=== PATIENT | female | born 1975 | race Caucasian/White ===

== ENCOUNTER 2017-07-20 19:58 | Emergency (ER) | payer BC ==
[2017-07-20 20:33] LABS: URINE HCG POC HCG NEGATIVE (Negative)
[2017-07-20] MEDS: KETOROLAC 15 MG/ML VIAL. IV ×2 (21:29)
[2017-07-20] MEDS: diphenhydrAMINE 50 MG/ML VIAL IVP ×2 (21:29)
[2017-07-20] MEDS: IV NORMAL SALINE 1000ML BAG 1,000 ML IV ×2 (21:29)
[2017-07-20] MEDS: PROMETHAZINE 12.5 MG in IV DEXTROSE 5% 50 ML IV (21:29)
== END 2017-07-20 22:19 | disposition home or self-care (01) ==
LOC: ER 19:58
DX: G43.909 Migraine, unspecified, not intractable, without status migrainosus (principal); J34.89 Other specified disorders of nose and nasal sinuses; Z88.2 Allergy status to sulfonamides; Z88.1 Allergy status to other antibiotic agents; Z98.51 Tubal ligation status
CPT/HCPCS: 81025; 96365; 96375; 99284-25; J1200; J1885; J2550; J7030

== ENCOUNTER 2017-11-26 10:07 | Emergency (ER) | payer BC | END 2017-11-26 11:43 | disposition home or self-care (01) | LOC: ER 10:07 | DX: S62.307A Unspecified fracture of fifth metacarpal bone, left hand, initial encounter for closed fracture (principal); S62.305A Unspecified fracture of fourth metacarpal bone, left hand, initial encounter for closed fracture; G43.909 Migraine, unspecified, not intractable, without status migrainosus; M79.7 Fibromyalgia; Z98.51 Tubal ligation status; Z88.1 Allergy status to other antibiotic agents; Z88.2 Allergy status to sulfonamides; W22.8XXA Striking against or struck by other objects, initial encounter; Y93.89 Activity, other specified; Y99.8 Other external cause status; Y92.89 Other specified places as the place of occurrence of the external cause | CPT/HCPCS: 29125; 73130; 99284-25 ==

== ENCOUNTER 2018-02-10 18:54 | Emergency (ER) | payer BC ==
[~2018-02-10] VITALS: Ht 152.4 cm; Wt 62.1 kg
[~2018-02-10 18:54] MED LIST: HYDR-971 PO
[2018-02-10 19:52] LABS: BILIRUBIN,URINE NEGATIVE (NEG); CLARITY,URINE CLEAR; COLOR,URINE YELLOW; NITRITE,URINE NEGATIVE (NEG); PH,URINE 7.5; PROTEIN,URINE NEGATIVE (NEG-TRACE); UROBILINOGEN,URINE 0.2 mg/dL (0.2 mg/dL)
[2018-02-10] MEDS ORDERED: MORPHINE SULFATE 4 MG/ML VIAL. IV ONE (20:00)
[2018-02-10] MEDS ORDERED: ONDANSETRON PF 4 MG/2 ML VIAL. IV ONE (20:00)
[2018-02-10 20:01] LABS: BACTERIA,URINE 0 /HPF (0-FEW); SQUAMOUS EPITHELIAL CELL,UR FEW /LPF; WBC,URINE 0 /HPF (0-4)
--- NOTE | 2018-02-10 20:01 | PHYS DOC ---
Past Medical History Past Medical History: Fibromyalgia, Migraines Past Surgical History: , Tonsillectomy, Tubal ligation Additional Past Surgical Histo: X3 FOOT SX Alcohol Use: None Drug Use: None Adult General Chief Complaint Chief Complaint: GI PROBLEM HPI HPI Patient is a 42 year old female presents the ED complaining of nausea and vomiting 4 days ago. Patient states that she had some left lower abdominal pain for the last 4 days. Associated symptoms include diarrhea. States she went to the urgent care and was sent to the ED. Denies chest pain, shortness of breath, fever, recent travel, syncope, headache or dizziness Review of Systems Review of Systems Constitutional: Denies fever or chills [] Eyes: Denies change in visual acuity, redness, or eye pain [] HENT: Denies nasal congestion or sore throat [] Respiratory: Denies cough or shortness of breath [] Cardiovascular: No additional information not addressed in HPI [] GI: Complains of abdominal pain, nausea/vomiting and diarrhea. Denies bloody stools. : Denies dysuria or hematuria [] Musculoskeletal: Denies back pain or joint pain [] Integument: Denies rash or skin lesions [] Neurologic: Denies headache, focal weakness or sensory changes [] Endocrine: Denies polyuria or polydipsia [] All other systems were reviewed and found to be within normal limits, except as documented in this note. Current Medications Current Medications Current Medications Medications (Trade) Dose Ordered Sig/Baldo Start Time Stop Time Status Last Admin Dose Admin Info (CONTRAST GIVEN -- Rx MONITORING) 1 each PRN DAILY PRN 02/10/18 20:15 02/11/18 05:05 DC Iohexol (Omnipaque 300 Mg/ml) 75 ml 1X ONCE 02/10/18 20:15 02/10/18 20:16 DC 02/10/18 20:36 75 ML Morphine Sulfate (Morphine Sulfate) 4 mg 1X ONCE 02/10/18 20:00 02/10/18 20:01 DC 02/10/18 20:21 4 MG Ondansetron HCl (Zofran) 4 mg 1X ONCE 02/10/18 20:00 02/10/18 20:01 DC 02/10/18 20:20 4 MG Allergies Allergies Allergies Coded Allergies Type Severity Reaction Last Updated Verified Sulfa (Sulfonamide Antibiotics) Allergy Unknown 07/20/17 Yes amoxicillin Allergy Unknown 07/20/17 Yes Physical Exam Physical Exam Constitutional: Well developed, well nourished, no acute distress, non-toxic appearance. [] HENT: Normocephalic, atraumatic Neck: Normal range of motion, no tenderness, supple, no stridor. [] Cardiovascular:Heart rate regular rhythm, no murmur [] Lungs & Thorax: Bilateral breath sounds clear to auscultation [] Abdomen: Bowel sounds normal, soft, mild llq abdominal tenderness, no masses, no pulsatile masses. [] Skin: Warm, dry, no erythema, no rash. [] Back: No tenderness, no CVA tenderness. [] Extremities: No tenderness, no cyanosis, no clubbing, ROM intact, no edema. [] Neurologic: Alert and oriented X 3, normal motor function, normal sensory function, no focal deficits noted. [] Psychologic: Affect normal, judgement normal, mood normal. [] Current Patient Data Vital Signs Vital Signs Date Time Temp Pulse Resp B/P (MAP) Pulse Ox O2 Delivery O2 Flow Rate FiO2 02/10/18 20:21 16 100 Room Air 02/10/18 20:16 95 116/64 (81) 02/10/18 19:50 98.6 98.6 Lab Values Laboratory Tests Test 02/10/18 19:35 02/10/18 19:41 02/10/18 19:55 Urine Collection Type Unknown Urine Color Yellow Urine Clarity Clear Urine pH 7.5 Urine Specific [place] <=1.005 Urine Protein Negative mg/dL (NEG-TRACE) Urine Glucose (UA) Negative mg/dL (NEG) Urine Ketones (Stick) Negative mg/dL (NEG) Urine Blood Negative (NEG) Urine Nitrite Negative (NEG) Urine Bilirubin Negative (NEG) Urine Urobilinogen Dipstick 0.2 mg/dL (0.2 mg/dL) Urine Leukocyte Esterase Negative (NEG) Urine RBC 1-2 /HPF (0-2) Urine WBC 0 /HPF (0-4) Urine Squamous Epithelial Cells Few /LPF Urine Bacteria 0 /HPF (0-FEW) POC Urine HCG, Qualitative Hcg negative (Negative) White Blood Count 7.4 x10^3/uL (4.0-11.0) Red Blood Count 3.76 x10^6/uL (3.50-5.40) Hemoglobin 11.6 g/dL (12.0-15.5) L Hematocrit 34.7 % (36.0-47.0) L Mean Corpuscular Volume 92 fL (79-100) Mean Corpuscular Hemoglobin 31 pg (25-35) Mean Corpuscular Hemoglobin Concent 33 g/dL (31-37) Red Cell Distribution Width 14.3 % (11.5-14.5) Platelet Count 274 x10^3/uL (140-400) Neutrophils (%) (Auto) 61 % (31-73) Lymphocytes (%) (Auto) 30 % (24-48) Monocytes (%) (Auto) 7 % (0-9) Eosinophils (%) (Auto) 1 % (0-3) Basophils (%) (Auto) 1 % (0-3) Neutrophils # (Auto) 4.5 x10^3uL (1.8-7.7) Lymphocytes # (Auto) 2.2 x10^3/uL (1.0-4.8) Monocytes # (Auto) 0.5 x10^3/uL (0.0-1.1) Eosinophils # (Auto) 0.1 x10^3/uL (0.0-0.7) Basophils # (Auto) 0.1 x10^3/uL (0.0-0.2) Sodium Level 137 mmol/L (136-145) Potassium Level 3.7 mmol/L (3.5-5.1) Chloride Level 102 mmol/L (98-107) Carbon Dioxide Level 28 mmol/L (21-32) Anion Gap 7 (6-14) Blood Urea Nitrogen 6 mg/dL (7-20) L Creatinine 1.0 mg/dL (0.6-1.0) Estimated GFR (Cockcroft-Gault) 61.1 BUN/Creatinine Ratio 6 (6-20) Glucose Level 86 mg/dL (70-99) Calcium Level 9.0 mg/dL (8.5-10.1) Total Bilirubin 0.3 mg/dL (0.2-1.0) Aspartate Amino Transferase (AST) 25 U/L (15-37) Alanine Aminotransferase (ALT) 36 U/L (14-59) Alkaline Phosphatase 112 U/L (46-116) Total Protein 7.4 g/dL (6.4-8.2) Albumin 3.7 g/dL (3.4-5.0) Albumin/Globulin Ratio 1.0 (1.0-1.7) Lipase 175 U/L (73-393) Laboratory Tests 02/10/18 19:55 Laboratory Tests 02/10/18 19:55 EKG EKG [] Radiology/Procedures Radiology/Procedures PROCEDURE: PELVIS W/TV Pelvic ultrasound. Clinical Indication: Left pelvic pain, abnormal CT. Comparison: CT abdomen and pelvis with contrast, earlier same day. TECHNIQUE: Real-time ultrasound imaging of the pelvis using transabdominal and transvaginal window is performed. Findings: There are multiple nabothian cysts. The uterus measures 9.5 x 5.1 x 4 cm. The endometrial stripe is normal measuring 9 mm. There is normal blood flow in the ovaries. There is a functional cyst in the left ovary measuring 2.1 x 2.2 x 1.9 cm. There are internal echoes and the cyst may be hemorrhagic. There are small right ovarian follicles. No evidence of adnexal mass. No pelvic free fluid is seen. IMPRESSION: 1. Normal blood flow in the ovaries. 2. Multiple nabothian cysts. 3. No pelvic free fluid.[] PROCEDURE: CT ABD PELV W/ IV CONTRST ONLY PQRS Compliance statement: One or more of the following individualized dose reduction techniques were utilized for this examination: 1. Automated exposure control. 2. Adjustment of the mA and/or kV according to patient size. 3. Use of iterative reconstruction technique. Indication:LEFT LOWER QUADRANT PAIN WITH NAUSEA, VOMITING, DIARRHEA TECHNIQUE: CT abdomen and pelvis with IV contrast with multiplanar reformats. COMPARISON: None FINDINGS: Heart is normal in size. Clear lung bases. Liver, spleen, gallbladder, pancreas, adrenals and right kidney are within normal limits. 1.8 cm simple appearing cyst is seen in the left kidney. No free pelvic fluid or ascites. No pelvic or retroperitoneal adenopathy. No bowel obstruction. Normal appendix. There is diffuse wall thickening of the colon noted without pericolonic inflammatory changes. Anteverted uterus. Urinary bladder within normal limits. 2.9 x 2.2 cm low attenuating lesion is seen in the left ovary. No pneumoperitoneum. No suspicious bony lesion. IMPRESSION: 1. No nephrolithiasis or hydronephrosis. 2. No bowel obstruction. 3. Left ovarian lesion, indeterminate but most likely a simple cyst or dominant follicle. 4. Long segment wall thickening of the colon may be secondary to suboptimal distention although mild colitis not ruled out. Course & Med Decision Making Course & Med Decision Making Pertinent Labs and Imaging studies reviewed. (See chart for details) []Discussed labs and imaging findings with patient. Patient's pain improved. States she is feeling much better. On reexamination, abdomen is soft nontender nondistended. No peritoneal signs. Tolerating by mouth. Discussed follow-up with PCP outpatient this week. Provided contact information/education. Discussed reasons to return to the ED. Patient understands and agrees with plan. Attending physician attestation: I was working at the time of this patient's ER visit and was available for consultation, but did not personally interview, examine, or directly take part in the patient's care. DO Richie Bolivar Disclaimer Dragon Disclaimer This electronic medical record was generated, in whole or in part, using a voice recognition dictation system. Departure Departure Impression: Primary Impression: Colitis Additional Impression: Ovarian cyst Disposition: HOME, SELF-CARE Condition: IMPROVED Referrals: MISTY RAMIREZ MD (PCP) Patient Instructions: Colitis, Ovarian Cyst Problem Qualifiers LEXX MITTAL Feb 10, 2018 20:01 LENCHO RIVERA DO Feb 15, 2018 06:10
[2018-02-10 20:04] LABS: BASO # 0.1 x10^3/uL (0.0-0.2); BASO % 1 % (0-3); EOS # 0.1 x10^3/uL (0.0-0.7); EOS % 1 % (0-3); HEMATOCRIT 34.7 % (36.0-47.0); HEMOGLOBIN 11.6 g/dL (12.0-15.5); LYMPH # 2.2 x10^3/uL (1.0-4.8); LYMPH % 30 % (24-48); MEAN CORPUSCULAR HEMOGLOBIN 31 pg (25-35); MEAN CORPUSCULAR HGB CONC 33 g/dL (31-37); MEAN CORPUSCULAR VOLUME 92 fL (79-100); MONO # 0.5 x10^3/uL (0.0-1.1); MONO % 7 % (0-9); NEUT # 4.5 x10^3uL (1.8-7.7); NEUT % 61 % (31-73); PLATELET COUNT 274 x10^3/uL (140-400); RED BLOOD COUNT 3.76 x10^6/uL (3.50-5.40); RED CELL DISTRIBUTION WIDTH 14.3 % (11.5-14.5); WHITE BLOOD COUNT 7.4 x10^3/uL (4.0-11.0)
[2018-02-10] MEDS ORDERED: IOHEXOL 300 MG/ML 100ML VIAL. IV ONE (20:15)
[2018-02-10] MEDS ORDERED: CONTRAST GIVEN. MC PRN (20:15)
[2018-02-10 20:16] VITALS: BP 116/64
[2018-02-10 20:16] LABS: GFR 61.1; POTASSIUM 3.7 mmol/L (3.5-5.1)
[2018-02-10 20:22] LABS: ALBUMIN 3.7 g/dL (3.4-5.0); TOTAL BILIRUBIN 0.3 mg/dL (0.2-1.0); TOTAL PROTEIN 7.4 g/dL (6.4-8.2)
--- NOTE | 2018-02-11 00:36 | RAD ---
PQRS Compliance statement: One or more of the following individualized dose reduction techniques were utilized for this examination: 1. Automated exposure control. 2. Adjustment of the mA and/or kV according to patient size. 3. Use of iterative reconstruction technique. Indication:LEFT LOWER QUADRANT PAIN WITH NAUSEA, VOMITING, DIARRHEA TECHNIQUE: CT abdomen and pelvis with IV contrast with multiplanar reformats. COMPARISON: None FINDINGS: Heart is normal in size. Clear lung bases. Liver, spleen, gallbladder, pancreas, adrenals and right kidney are within normal limits. 1.8 cm simple appearing cyst is seen in the left kidney. No free pelvic fluid or ascites. No pelvic or retroperitoneal adenopathy. No bowel obstruction. Normal appendix. There is diffuse wall thickening of the colon noted without pericolonic inflammatory changes. Anteverted uterus. Urinary bladder within normal limits. 2.9 x 2.2 cm low attenuating lesion is seen in the left ovary. No pneumoperitoneum. No suspicious bony lesion. IMPRESSION: 1. No nephrolithiasis or hydronephrosis. 2. No bowel obstruction. 3. Left ovarian lesion, indeterminate but most likely a simple cyst or dominant follicle. 4. Long segment wall thickening of the colon may be secondary to suboptimal distention although mild colitis not ruled out. Electronically signed by: Vladislav Faye DO (02/10/2018 9:01 PM) [facility]
--- NOTE | 2018-02-11 02:17 | RAD ---
Pelvic ultrasound. Clinical Indication: Left pelvic pain, abnormal CT. Comparison: CT abdomen and pelvis with contrast, earlier same day. TECHNIQUE: Real-time ultrasound imaging of the pelvis using transabdominal and transvaginal window is performed. Findings: There are multiple nabothian cysts. The uterus measures 9.5 x 5.1 x 4 cm. The endometrial stripe is normal measuring 9 mm. There is normal blood flow in the ovaries. There is a functional cyst in the left ovary measuring 2.1 x 2.2 x 1.9 cm. There are internal echoes and the cyst may be hemorrhagic. There are small right ovarian follicles. No evidence of adnexal mass. No pelvic free fluid is seen. IMPRESSION: 1. Normal blood flow in the ovaries. 2. Multiple nabothian cysts. 3. No pelvic free fluid. Electronically signed by: Marvin Ash MD (02/11/2018 2:14 AM) [facility]
== END 2018-02-11 00:30 | disposition home or self-care (01) ==
LOC: ER 18:54
DX: N83.202 Unspecified ovarian cyst, left side (principal); K52.9 Noninfective gastroenteritis and colitis, unspecified; G43.909 Migraine, unspecified, not intractable, without status migrainosus; Z90.89 Acquired absence of other organs; Z98.890 Other specified postprocedural states; Z88.1 Allergy status to other antibiotic agents; Z88.2 Allergy status to sulfonamides
CPT/HCPCS: 36415; 74177; 76830; 76856; 80053; 81001; 81025; 83690; 85025; 96374; 96375; 99285; J2270; J2405; Q9967

== ENCOUNTER 2019-01-21 06:15 | Observation (INO) | payer BC ==
[2019-01-21] VITALS (11 sets, daily range): BP systolic 91–122; BP diastolic 53–82
[~2019-01-21] VITALS: Ht 152.4 cm; Wt 126.4 kg
[~2019-01-21 06:15] MED LIST changes: +BUDE10.2 IH; +BUPIVACAINE-EPI 0.25%-1:200000 MPF 30 ML VIAL. ONE; +BUPR100T11 PO; +BUPR100T8 PO; +CLINDAMYCIN 900MG PREMIX 50 ML IV PRN; +ESTROGENS, CONJ VAGINAL CREAM 30GM TUBE. ONE; +HYDR-3164 PO; -HYDR-971 PO; +INDIGOTINDISULFONATE SODIUM 40 MG/5 ML AMPUL. ONE; +SUMA100T4 PO; +TRAM50TA PO
[2019-01-21] MEDS ORDERED: IV RINGERS,LACTATED 1000ML 1,000 ML IV SCH (07:00)
[2019-01-21] MEDS ORDERED: SCOPOLAMINE 1.5MG PATCH. TD ONE (07:00)
[2019-01-21] MEDS ORDERED: ONDANSETRON PF 4 MG/2 ML VIAL. IV PRN ×2 (07:00→09:30)
[2019-01-21] MEDS ORDERED: PROCHLORPERAZINE 10 MG/2 ML VIAL. IV PRN (07:00)
[2019-01-21] MEDS ORDERED: PROPOFOL 20 ML IV ONE (07:00)
[2019-01-21] MEDS ORDERED: LIDOCAINE 1% PF 2 ML VIAL. ID PRN (07:00)
[2019-01-21] MEDS ORDERED: HYDROmorphone 2 MG/ML VIAL IV PRN (07:00)
[2019-01-21] MEDS ORDERED: ONDANSETRON PF 4 MG/2 ML VIAL. ONE (07:00)
[2019-01-21] MEDS ORDERED: fentaNYL PF VIAL 100 MCG/2 ML VIAL IV PRN (07:00)
[2019-01-21] MEDS ORDERED: fentaNYL PF VIAL 100 MCG/2 ML VIAL ONE ×3 (07:01→10:20)
[2019-01-21] MEDS ORDERED: DEXAMETHASONE SOD PHOS 4 MG/ML VIAL ONE (07:01)
[2019-01-21] MEDS ORDERED: ROCURONIUM 50 MG/5 ML VIAL. ONE (07:02)
[2019-01-21] MEDS ORDERED: SUMAtriptan SUCCINATE 25 MG TABLET PO PRN (08:00)
[2019-01-21] MEDS ORDERED: PHENYLEPHRINE in 0.9% NACL PF 1 MG/10 ML SYRINGE. IV ONE (08:22)
--- NOTE | 2019-01-21 09:28 | PDOC ---
BRIEF OPERATIVE NOTE Date: Jan 21, 2019 Pre-Op Diagnosis menorrhagia, enlarged uterus Post-Op Diagnosis same with endometriosis Procedure Performed LAVH/BSO Surgeon Dr. Eloisa Alvarez Wood Room Supervisor CHERYL Wood Anesthesiologist Dr. Barreto Anesthesia Type: General Blood Loss 20cc IV Fluid 600cc Urine Output 150cc clear via jalloh Specimens Obtained cervix, uterus, bilateral tubes and ovaries Findings endometriosis on anterior abdominal wall, uterus, left US ligament and on left tube; mildly enlarged RV uterus, normal bilateral ovaries; evidence of prior fallop ring tubal ligation normal appendix Complications none Operative Note [id number] ELOISA ALVAREZ MD Jan 21, 2019 09:28
[2019-01-21] MEDS ORDERED: LACTULOSE 20 GM/30 ML SOLUTION. PO PRN (09:30)
[2019-01-21] MEDS ORDERED: 0.9 % SODIUM CHLORIDE 10 ML DISP.SYRIN. IV PRN (09:30)
[2019-01-21] MEDS ORDERED: ZOLPIDEM 5 MG TABLET. PO PRN (09:30)
[2019-01-21] MEDS ORDERED: diphenhydrAMINE 50 MG/ML VIAL IV PRN (09:30)
[2019-01-21] MEDS ORDERED: MAGNESIUM HYDROXIDE 2,400 MG/30 ML ORAL.SUSP. PO PRN (09:30)
[2019-01-21] MEDS ORDERED: diphenhydrAMINE HCL 25 MG CAPSULE PO PRN (09:30)
[2019-01-21] MEDS ORDERED: SIMETHICONE 80 MG TAB.CHEW PO PRN (09:30)
[2019-01-21] MEDS ORDERED: MORPHINE SULFATE 2 MG/ML VIAL. IV PRN (09:30)
[2019-01-21] MEDS ORDERED: MAG HYDROX/ALUMINUM HYD/SIMETH 30 ML ORAL.SUSP PO PRN (09:30)
[2019-01-21] MEDS ORDERED: CALCIUM CARBONATE 500 MG TAB.CHEW PO PRN (09:30)
[2019-01-21] MEDS ORDERED: HYDROcodone/APAP 5/325MG 1 TAB TABLET PO PRN (09:30)
[2019-01-21] MEDS ORDERED: NALOXONE 0.4 MG/ML VIAL. IV PRN (09:30)
[2019-01-21] MEDS: fentaNYL PF VIAL 100 MCG/2 ML VIAL IV PRN ×4 (09:50→10:28)
[2019-01-21] MEDS: MORPHINE SULFATE 2 MG/ML VIAL. IV PRN ×2 (09:58→10:11)
[2019-01-21] MEDS ORDERED: ESTRADIOL WEEKLY 0.1 MG PATCH. TD SCH (10:00)
[2019-01-21] MEDS ORDERED: diphenhydrAMINE 50 MG/ML VIAL ONE (10:14)
[2019-01-21] MEDS: KETOROLAC 30 MG/ML VIAL. IV PRN ×2 (11:33→20:13)
--- NOTE | 2019-01-21 14:47 | OP ---
DATE OF SURGERY: 01/21/2019 PREOPERATIVE DIAGNOSES: Enlarged retroverted uterus with menorrhagia and pelvic pain. POSTOPERATIVE DIAGNOSES: Enlarged retroverted uterus with menorrhagia and pelvic pain with endometriosis. PROCEDURE: Laparoscopic-assisted vaginal hysterectomy, bilateral salpingo-oophorectomy. SURGEON: Iker Alvarez MD GAS LEAK INSPECTOR HELPER: CHERYL Zamudio ANESTHESIOLOGIST: Shan Barreto MD ANESTHESIA: General. ESTIMATED BLOOD LOSS: 20 mL. URINE OUTPUT: 150 mL, clear via Izquierdo catheter. IV FLUIDS: 600 mL of crystalloid. SPECIMEN: Cervix, uterus, bilateral tubes and ovaries. FINDINGS: Endometriosis on the anterior abdominal wall on the uterus posteriorly, the left uterosacral ligament and left tube and that was on the left anterior abdominal wall. This was pretty much left-sided. She had a mildly enlarged retroverted uterus, normal bilateral ovaries with evidence of prior tubal ligation with Falope rings. COMPLICATIONS: None. DESCRIPTION OF PROCEDURE: This patient was taken to the operating room where general anesthesia was placed. The patient was placed in a dorsal lithotomy position in [facility]. The patient's abdomen and vagina were prepped and draped in the normal sterile fashion and a Izquierdo catheter had been inserted under sterile technique. Upon my arrival, a timeout was performed. Once everyone agreed, a bivalve speculum was placed in the patient's vagina. A single-tooth tenaculum was used to grasp the anterior lip of the cervix. A 10 mL of 0.25% Marcaine with epinephrine was used to circumferentially inject around the cervix for both hemodissection and hemostatic purposes later. The Valtchev uterine manipulator was placed through the endocervical os, locked on the single-tooth tenaculum and the bivalve speculum was then removed. Top gloves were discarded and changed. Attention was then turned to the abdomen where a small supraumbilical skin incision was made with the scalpel. When I pressed from below, her uterus could be kind of midway between the pubic bone and the umbilicus, so I went above to give room to operate as she had a mildly enlarged uterus. So, going a couple centimeters above the umbilicus, a small incision was made. A curved Antonieta was used to dissect through the subcuticular layer to the fascia. The 5-mm Visiport was used to directly enter the abdominal cavity. Opening patient pressure was 3-4 mmHg. Carbon dioxide gas was used to then appropriately insufflate the abdominal cavity to maintain a pressure of 15 mmHg. The patient was placed in Trendelenburg position. Right and left lower quadrant ports were placed under direct visualization making sure that the anterior abdominal wall was clear of anything, then transilluminating the abdominal wall, finding an area clear of any vasculature, making a small incision and placing the 5-mm disposable atraumatic port under direct visualization without difficulty. Then, using 4-5 mL of air to fill the cuff on the trocar on both sides, I then did move the camera to the one on the lateral ports, looked at the umbilical port; it was clear and I insufflated that cuff as well in the trocar. At this point, the left tube and ovary were elevated. There were some mild adhesions of the fat pad over the descending colon to the IP ligament low, but I could elevate it high. I found the ureter coursing low in the pelvis and staying high on the ovary on the infundibulopelvic ligament, the LigaSure was used to cauterize and cut taking the ovary per the patient's request, then crossing the left round ligament and starting the bladder flap sharply. There were some mild bladder adhesions from her prior sections, but they came down very easily using the monopolar hook going across. This was done exactly the same on the right side, elevating the right tube and ovary, finding the ureter coursing low in the pelvis, staying high right under the ovary on the infundibulopelvic ligament using the LigaSure to cauterize and cut, going up again to the right round ligament and going down and meeting that bladder flap anteriorly. Once the bladder was assured down, the uterine vessels were obtained on both sides and then going down through the cardinal and broad ligaments to the level of the uterosacral ligaments bilaterally. The uterus was completely free and blanched at this point, so all instruments were removed from the abdomen and attention was turned vaginally. The single tooth and Valtchev were removed. A weighted speculum was placed in the patient's vagina. Thyroid Benito clamps were placed on the anterior and posterior lips of the cervix respectively. A scalpel was used to make a circumferential incision in the cervix. Open Ray-Noreen 4 x 4 was used to gently push off the anterior bladder peritoneum from the cervix. The anterior cul-de-sac was digitally and bluntly entered. The Ray-Noreen was removed and the curved [place] was placed in the anterior cul-de-sac. The cervix was elevated. The posterior cul-de-sac was sharply entered with curved Jerome scissors. A #0 Vicryl stitch was used to secure the posterior peritoneum here to the vaginal cuff and it was kept tagged with a curved Antonieta clamp. The needle was cut and passed off. The short-weighted speculum was removed and replaced with the long-weighted Brandon speculum in the posterior cul-de-sac. Curved Nusrat clamps x 2 were placed on the patient's left uterosacral ligament where they were doubly clamped with curved Nusrat's, cut with curved Jerome scissors and suture ligated x 2 with 0 Vicryl. Second one was taken through the vaginal cuff securing the uterosacral ligament to the vaginal cuff. It was tagged with a straight Antonieta clamp and the needle was cut and passed off. This was done exactly the same on the patient's right side, double clamping the uterosacrals with curved Nusrat's, cutting with curved Jerome scissors, suture ligating x 2 with 0 Vicryl, taking the second one through the vaginal cuff, tagging it with a straight Antonieta clamp and cutting and passing the needle off. The remaining pedicles on both sides were delineated with a curved mixture clamp. The vaginal LigaSure was used to cauterize and cut the remaining pedicles on both sides. The cervix, uterus, bilateral tubes and ovaries were delivered in total and passed off for permanent pathology. A long Allis was used to grasp the anterior bladder peritoneum. A sponge stick was used to examine the pedicles. There was some slight bleeding from the left side near the uterosacral ligament. It was easily identified, grasped with a pickup and the vaginal LigaSure was used to cauterize it. Once this was done, the remaining pedicles were dry. The long Brandon speculum was removed from the posterior cul-de-sac and the short-weighted vaginal speculum was replaced in the posterior vagina. A 2-0 Vicryl was taken through the anterior bladder peritoneum, left uterosacral ligament, posterior peritoneum and right uterosacral ligament, thus closing the peritoneum in a pursestring-like fashion. Once this was done, the right and left uterosacral tags were clipped as well. All that remained was posterior cuff tag. So, at this point, a full length 2-0 Vicryl was used to close the cuff in an [id number] running locked fashion and it was tied to that posterior cuff tag. Once this was done, a sponge stick was used to examine the vaginal cuff. It was completely hemostatic. All sponge, lap and needle counts were correct x 2 below. The cuff was dry, everything was removed and everything was done below. At this point, all gloves were discarded and changed. Attention was turned back above for a second look. Copious irrigation revealed hemostasis. Tisseel was placed over the vaginal cuff with excellent results. The right and left pericolic gutters were clear as well. At this point, the syringe was used to deflate the cuff on all 3 trocars. The right and left lower quadrant ones were taken out under direct visualization. Gas was released from the umbilical one and all 3 are being closed with 4-0 nylon at the skin and injected with 10 mL of local. The patient is currently being awakened from anesthesia. IKER ALVAREZ MD DR: ADELINE/ramses JOB#: [id number] / [id number]
[2019-01-21] MEDS: oxyCODONE/APAP 5/325 1 TAB TABLET PO PRN ×2 (17:09→21:14)
[2019-01-22] MEDS: oxyCODONE/APAP 5/325 1 TAB TABLET PO PRN ×2 (02:30→06:29)
[2019-01-22 06:50] VITALS: BP 91/52
[2019-01-22 06:52] LABS: CALCIUM 8.1 mg/dL (8.5-10.1); GFR 60.8; POTASSIUM 4.3 mmol/L (3.5-5.1)
--- NOTE | 2019-01-22 08:55 | PDOC ---
SURGICAL PROGRESS NOTE Subjective Doing well without complaints. Up walking around room/brushing teeth upon my arrival this am. Tolerating PO, ambulating well, voiding without catheter. No vaginal bleeding and wants to go home today. Minimal pain, gas pain is the worst part. Vital Signs Vital Signs Date Time Temp Pulse Resp B/P (MAP) Pulse Ox O2 Delivery O2 Flow Rate FiO2 01/22/19 06:50 97.9 66 18 91/52 (65) 98 Room Air 97.9 01/21/19 10:28 10.0 I&O Intake and Output 01/22/19 06:59 Intake Total 5300 ml Output Total 1745 ml Balance 3555 ml Intake Oral 1900 ml IV Total 3400 ml Output Urine Total 1725 ml Estimated Blood Loss 20 ml # Voids 2 PATIENT HAS A ESTRADA: No General: Alert, Oriented X3, Cooperative, No acute distress HEENT: Atraumatic Heart: Regular rate Abdomen: Soft, No tenderness, No masses, Other (all port sites c/d/i) Extremities: No clubbing, No cyanosis, No edema, No tenderness/swelling Skin: No rashes, No breakdown Neuro: Normal speech Psych/Mental Status: Mental status NL, Mood NL Labs Laboratory Tests Test 01/21/19 06:30 01/22/19 06:25 Bedside Urine HCG, Qualitative Hcg negative (Negative) Hematocrit 31.7 % (36.0-47.0) Sodium Level 140 mmol/L (136-145) Potassium Level 4.3 mmol/L (3.5-5.1) Chloride Level 106 mmol/L (98-107) Carbon Dioxide Level 29 mmol/L (21-32) Anion Gap 5 (6-14) Blood Urea Nitrogen 9 mg/dL (7-20) Creatinine 1.0 mg/dL (0.6-1.0) Estimated GFR (Cockcroft-Gault) 60.8 Glucose Level 91 mg/dL (70-99) Calcium Level 8.1 mg/dL (8.5-10.1) Laboratory Tests Test 01/22/19 06:25 Hematocrit 31.7 % (36.0-47.0) Sodium Level 140 mmol/L (136-145) Potassium Level 4.3 mmol/L (3.5-5.1) Chloride Level 106 mmol/L (98-107) Carbon Dioxide Level 29 mmol/L (21-32) Anion Gap 5 (6-14) Blood Urea Nitrogen 9 mg/dL (7-20) Creatinine 1.0 mg/dL (0.6-1.0) Estimated GFR (Cockcroft-Gault) 60.8 Glucose Level 91 mg/dL (70-99) Calcium Level 8.1 mg/dL (8.5-10.1) I have reviewed the following labs, vitals, nursing Cardiovascular: No pertinent hx Pulmonary: No pertinent hx GI: No pertinent hx Heme/Onc: No pertinent hx Psych: No pertinent hx Infectious disease: No pertinent hx ENT: No pertinent hx Assessment/Plan POD#1 s/p LAVH/BSO routtine PO care d/c to home later today NPV x 6 weeks light/limited activity x 2 weeks keep scheduled one week post op appt with me in office call or return sooner for any other questions or concerns not limited to but including pain unrelieved with pain meds, increased or unexplained vaginal bleeding, or T>100.4 ok for OTC ibuprofen as needed already has pain pills filled at home IKER REEVES MD Jan 22, 2019 08:55
--- NOTE | 2019-01-22 08:57 | PDOC3 ---
Discharge Summary Visit Information Date of Admission: Jan 21, 2019 Date of Discharge: Jan 22, 2019 Final Diagnosis menorrhagia and endometriosis on scope Brief Hospital Course Allergies Allergies Coded Allergies Type Severity Reaction Last Updated Verified Sulfa (Sulfonamide Antibiotics) Allergy Intermediate 01/21/19 Yes amoxicillin Allergy Intermediate 01/21/19 Yes latex Allergy Intermediate 01/21/19 Yes Uncoded Allergies Type Severity Reaction Last Updated Verified STAINLESS STEEL Allergy Intermediate 01/21/19 Vital Signs Vital Signs Date Time Temp Pulse Resp B/P (MAP) Pulse Ox O2 Delivery O2 Flow Rate FiO2 01/22/19 06:50 97.9 66 18 91/52 (65) 98 Room Air 97.9 01/21/19 10:28 10.0 Lab Results Laboratory Tests Test 01/21/19 06:30 01/22/19 06:25 Bedside Urine HCG, Qualitative Hcg negative (Negative) Hematocrit 31.7 % (36.0-47.0) Sodium Level 140 mmol/L (136-145) Potassium Level 4.3 mmol/L (3.5-5.1) Chloride Level 106 mmol/L (98-107) Carbon Dioxide Level 29 mmol/L (21-32) Anion Gap 5 (6-14) Blood Urea Nitrogen 9 mg/dL (7-20) Creatinine 1.0 mg/dL (0.6-1.0) Estimated GFR (Cockcroft-Gault) 60.8 Glucose Level 91 mg/dL (70-99) Calcium Level 8.1 mg/dL (8.5-10.1) Laboratory Tests Test 01/22/19 06:25 Hematocrit 31.7 % (36.0-47.0) Sodium Level 140 mmol/L (136-145) Potassium Level 4.3 mmol/L (3.5-5.1) Chloride Level 106 mmol/L (98-107) Carbon Dioxide Level 29 mmol/L (21-32) Anion Gap 5 (6-14) Blood Urea Nitrogen 9 mg/dL (7-20) Creatinine 1.0 mg/dL (0.6-1.0) Estimated GFR (Cockcroft-Gault) 60.8 Glucose Level 91 mg/dL (70-99) Calcium Level 8.1 mg/dL (8.5-10.1) Brief Hospital Course Ms. Celaya is a 43 old female who presented with menorrhagia and pelvic pain. She underwent and LAVH/BSO yesterday without complication and was also found to have endometriosis. She has had an unremarkable postoperative course and is tolerating po, ambulating well, voiding without catheter and desiring to go home today. AFVSS and no vaginal bleeding Discharge Information Condition at Discharge: Stable Follow Up: Weeks Disposition/Orders: D/C to Home Scheduled Budesonide/Formoterol Fumarate (Symbicort 160-4.5 Mcg Inhaler) 10.2 Gm Hfa.aer.ad, 2 PUFF IH BID for ASTHMA, #10.6 Ref 3 (Reported) Entered as Reported by: Kinza Tierney on 01/16/191348 Last Taken: Unknown Dose on 01/18/19 Last Action: HELD on 01/21/19736 by IKER REEVES Bupropion Hcl (Bupropion Hcl) 100 Mg Tablet, 300 MG PO DAILY for FIBROMYALGIA, (Reported) Entered as Reported by: Kinza Tierney on 01/16/191348 Last Taken: Unknown Dose on 01/21/19529 Last Action: Continued on 01/21/19736 by IKER REEVES Bupropion Hcl (Bupropion Hcl Sr) 100 Mg Tablet.er, 150 MG PO HS for FIBROMYALGIA, (Reported) Entered as Reported by: Kinza Tierney on 01/16/191348 Last Taken: Unknown Dose on 01/20/19529 Last Action: HELD on 01/21/19736 by IKER REEVES Scheduled PRN Sumatriptan Succinate (Sumatriptan Succinate) 100 Mg Tablet, 50 MG PO ONCE PRN for MIGRAINE HEADACHE, (Reported) Entered as Reported by: Kinza Tierney on 01/16/191348 Last Action: Continued on 01/21/19736 by IKER REEVES Tramadol Hcl (Tramadol Hcl) 50 Mg Tablet, 50 MG PO DAILY PRN for PAIN, Ref 0 (Reported) Entered as Reported by: Kinza Tierney on 01/16/191348 Last Taken: Unknown Dose on 01/20/19 Last Action: HELD on 01/21/19736 by IKER REEVES Patient Instructions Patient Instructions POD#1 s/p LAVH/BSO routtine PO care d/c to home later today NPV x 6 weeks light/limited activity x 2 weeks keep scheduled one week post op appt with me in office call or return sooner for any other questions or concerns not limited to but including pain unrelieved with pain meds, increased or unexplained vaginal bl eeding, or T>100.4 ok for OTC ibuprofen as needed already has pain pills filled at home IKER REEVES MD Jan 22, 2019 08:57
[2019-01-22] MEDS ORDERED: buPROPion 100 MG TABLET PO SCH (09:00)
--- NOTE | 2019-01-22 17:07 | PATHOLOGY ---
[place] Accession Number: [id number] . 01 Material submitted: . uterus - CEVIX, UTERUS,BILATERAL FALLOPIAN TUBES AND BILATERAL OVARIES . 01 Clinical history: . Menorrhagia . 02 Diagnosis: Uterus and attached bilateral fallopian tubes and ovaries, laparoscopic assisted vaginal hysterectomy with bilateral salpingo-oophorectomy: - Adenomyosis, uterine corpus (uterine weight 78 grams). - Proliferative endometrium. - Status post bilateral tubal ligation with presence of Falope Rings. - Bilateral ovaries showing no significant pathologic abnormalities. (JPM:[facility] 01/22/2019) QTP01/22/2019 . 02 Comment: There is no evidence of endometrial hyperplasia, atypia, or malignancy. . 02 Electronically signed: . Gwyn Hernandez MD, Pathologist NPI- [id number] . 01 Gross description: . The specimen is received in formalin labeled "Dona Celaya, cervix, uterus, bilateral fallopian tubes, bilateral ovaries". Received is a 78 g, 9.1 x 5.9 x 3.5 cm uterus with attached cervix and attached adnexa, weighing 6 g each. The uterine serosa is pink-benoit in appearance with a slight amount of overlying adhesions. The 0.5 cm cervical os is surrounded by pink-salinas, smooth to slightly irregular in contour ectocervical mucosa. The uterus is oriented using the peritoneal reflection and the posterior paracervical margin is inked black. The uterus is opened laterally to reveal a pale salinas to slightly corrugated and cystic endocervical canal measuring 2.8 cm in length. The endometrial cavity is triangular measuring 4.3 cm in length by 2.7 cm in width. The endometrium is pale salinas to pink-red and glistening in appearance and measures 0.1 cm in thickness. Serial sectioning reveals a salinas-pink, trabeculated myometrium measuring up to 1.9 cm in thickness with no grossly distinct nodules or lesions. . The left adnexa consists of a previously ligated, fimbriated fallopian tube measuring 3.6 cm in length by up to up to 0.7 cm in diameter attached to a 2.8 x 1.5 x 1.2 cm ovary. The fallopian tube displays an attached plastic ligation ring at the mid aspect. Sectioning through the fallopian tube reveals a patent to slightly dilated lumen and the fallopian tube appears grossly unremarkable. Sectioning through the ovary reveals pale salinas, normal ovarian stroma. . The right adnexa consists of a previously ligated, fimbriated fallopian tube measuring 4.1 cm in length by up to 0.6 cm in diameter attached to a 2.9 x 1.4 x 1.4 cm ovary. The fallopian tube displays an attached plastic ligation ring at the mid aspect. Sectioning through the fallopian tube reveals a patent lumen and the fallopian tube appears grossly unremarkable. Sectioning through the ovary reveals pale salinas, normal ovarian stroma with multiple cystic structures present ranging in size from 0.1 to 0.2 cm filled with blood-tinged fluid. The specimen is submitted representatively as follows: . A1 12:00 cervix A2 6:00 cervix A3 serosal adhesions A4 anterior endomyometrium A5 posterior endomyometrium A6 left adnexa A7 right adnexa. (CAA; 01/21/2019) QA/QAC . 02 Pathologist provided ICD-10: N80.0, N92.0 . 02 CPT . 981798 Specimen Comment: A courtesy copy of this report has been sent to Specimen Comment: [phone]. Specimen Comment: Report sent to Performed at: 01 [facility] [address], [place] [id number] MD Davy Patrick MD Phone: [phone] Performed at: [address] [facility] [address] [facility] [address], [place] [id number] MD Gwyn Hernandez MD Phone: [phone]
== END 2019-01-22 11:00 | disposition home or self-care (01) ==
LOC: SURG 06:15 → 3 NORTH 09:37
PROVIDERS: ADMIT Obstetrics & Gynecology; ATTEND Obstetrics & Gynecology
DX: N92.0 Excessive and frequent menstruation with regular cycle (principal); N80.9 Endometriosis, unspecified; N85.2 Hypertrophy of uterus; N85.4 Malposition of uterus; Z98.51 Tubal ligation status; Z98.891 History of uterine scar from previous surgery; E16.2 Hypoglycemia, unspecified
CPT/HCPCS: 36415; 58550; 80048; 81025; 85014; 86850; 86900; 86901; 88307; 96374; 96375; 96376; A7015; G0378; G0379; J1100; J1200; J1885; J1956; J2270; J2370; J2405; J2704; J3010; J3490; J7030

== ENCOUNTER 2019-09-29 17:59 | Emergency (ER) | payer BC ==
[~2019-09-29] VITALS: Ht 152.4 cm; Wt 54.5 kg
[~2019-09-29 17:59] MED LIST changes: -BUPIVACAINE-EPI 0.25%-1:200000 MPF 30 ML VIAL. ONE; -CLINDAMYCIN 900MG PREMIX 50 ML IV PRN; -ESTROGENS, CONJ VAGINAL CREAM 30GM TUBE. ONE; -INDIGOTINDISULFONATE SODIUM 40 MG/5 ML AMPUL. ONE
[2019-09-29] MEDS ORDERED: IV NORMAL SALINE 1000ML BAG 1,000 ML IV SCH (18:44)
[2019-09-29] MEDS ORDERED: KETOROLAC 30 MG/ML VIAL. IVP ONE (18:45)
[2019-09-29 19:00] LABS: BILIRUBIN,URINE NEGATIVE (NEG); CLARITY,URINE CLEAR; COLOR,URINE YELLOW; NITRITE,URINE NEGATIVE (NEG); PROTEIN,URINE NEGATIVE (NEG-TRACE); UROBILINOGEN,URINE 0.2 mg/dL (0.2 mg/dL)
--- NOTE | 2019-09-29 19:03 | PHYS DOC ---
Past Medical History Past Medical History: Fibromyalgia, Migraines Past Surgical History: , Tonsillectomy, Tubal ligation Additional Past Surgical Histo: X3 FOOT SX Smoking Status: Never Smoker Alcohol Use: None Drug Use: Marijuana General Adult EDM: Chief Complaint: ABDOMINAL PAIN HPI: HPI: Patient is a 43 year old female with history of fibromyalgia, migraine headache, ulcerative colitis without taking medication, hysterectomy who presents with complaining of abdominal pain. Patient complaining of nausea and 3 or 4 episodes of vomiting daily started 3 days ago without any episodes of vomiting today associated with right lower quadrant sharp pain without radiation as a constant pain that getting worse with eating and movement and rated her pain 8/10 that improved to 6/10 today after taking tramadol for her chronic fibromyalgia pain. Patient states she had a bowel movement 3 days ago that is her usual pattern of her bowel movement of every 3 to 4 days. Patient complaining of urinary frequency without dysuria and hematuria. Patient states a temperature of 101 yesterday but did not have any fever today when she did not take any medication for fever. Patient denies cough, sore throat, myalgia, sick contact with COVID-19 patient. Patient states she had the same pain about 1 year ago with diagnosis of ulcerative colitis without taking any medication for ulcerative colitis. Review of Systems: Review of Systems: Constitutional: Reports fever Eyes: Denies change in visual acuity. [] HENT: Denies nasal congestion or sore throat. [] Respiratory: Denies cough or shortness of breath. [] Cardiovascular: Denies chest pain or edema. [] GI: Reports abdominal pain, nausea, vomiting, denies bloody stools or diarrhea. [] : Denies dysuria. [] Musculoskeletal: Denies back pain or joint pain. [] Integument: Denies rash. [] Neurologic: Denies headache, focal weakness or sensory changes. [] Endocrine: Denies polyuria or polydipsia. [] Lymphatic: Denies swollen glands. [] Psychiatric: Denies depression or anxiety. [] Heart Score: Risk Factors: Risk Factors: DM, Current or recent (<one month) smoker, HTN, HLP, family history of CAD, obesity. Risk Scores: Score 0 - 3: 2.5% MACE over next 6 weeks - Discharge Home Score 4 - 6: 20.3% MACE over next 6 weeks - Admit for Clinical Observation Score 7 - 10: 72.7% MACE over next 6 weeks - Early Invasive Strategies Current Medications: Current Medications Medications (Trade) Dose Ordered Sig/Baldo Start Time Stop Time Status Last Admin Dose Admin Ketorolac Tromethamine (Toradol 30mg Vial) 30 mg 1X ONCE 09/29/19 18:45 09/29/19 18:49 DC Sodium Chloride 1,000 ml @ 1,000 mls/hr Q1H 09/29/19 18:44 09/29/19 19:43 Allergies: Allergies: Allergies Coded Allergies Type Severity Reaction Last Updated Verified Sulfa (Sulfonamide Antibiotics) Allergy Intermediate 01/21/19 Yes amoxicillin Allergy Intermediate 01/21/19 Yes latex Allergy Intermediate 01/21/19 Yes Uncoded Allergies Type Severity Reaction Last Updated Verified STAINLESS STEEL Allergy Intermediate 01/21/19 Physical Exam: PE: Constitutional: Well developed, well nourished, mild distress, non-toxic appearance. [] HENT: Normocephalic, atraumatic. Eyes: PERRLA, EOMI, conjunctiva normal, no discharge. [] Neck: Normal range of motion, no tenderness, supple, no stridor. [] Cardiovascular:Heart rate regular rhythm, no murmur [] Lungs & Thorax: Bilateral breath sounds clear to auscultation [] Abdomen: Bowel sounds normal, soft, lower abdominal guarding,no tenderness, no masses, no pulsatile masses. [] Skin: Warm, dry, no erythema, no rash. [] Back: No tenderness, no CVA tenderness. [] Extremities: No tenderness, no cyanosis, no clubbing, ROM intact, no edema. [] Neurologic: Alert and oriented X 3, no focal deficits noted. [] Psychologic: Affect normal, judgement normal, mood normal. [] EKG: EKG: [] Radiology/Procedures: Radiology/Procedures: [facility] [address] [place], [place] [id number] IMAGING REPORT Signed PATIENT: BRITT LEAL ACCOUNT: [id number] : 1975 LOCATION: ER AGE: 43 SEX: F EXAM STATUS: REG ER ORD. PHYSICIAN: JOSÉ BRISENO MD REASON: RLQ pain, h/o ulcerative colitis PROCEDURE: CT ABD PELV W/ORAL&IV CONTRAST PQRS Compliance Statement: One or more of the following individualized dose reduction techniques were utilized for this examination: 1. Automated exposure control 2. Adjustment of the mA and/or kV according to patient size 3. Use of iterative reconstruction technique CT abdomen/pelvis with contrast 09/29/2019 6:44 PM INDICATION: Right lower quadrant pain with history of ulcerative colitis COMPARISON: CT abdomen/pelvis February 10, 2018 TECHNIQUE: Multiple axial CT images of the abdomen and pelvis were obtained after the intravenous administration of 75 mL Omnipaque 300. Coronal and sagittal reformats are provided. FINDINGS: There is subsegmental atelectasis in the inferior lingula. 4 mm solid noncalcified pulmonary nodule noted in the right lower lobe (series 2, image 6). Heart size is within normal limits. Liver, spleen, bilateral adrenal glands, pancreas and gallbladder are normal in appearance. Abdominal aorta is normal in course and caliber. There are no pathologically enlarged lymph nodes in abdomen and pelvis. Oral contrast was administered. Opacified bowel loops demonstrate normal mucosal fold pattern. Small and large bowel are normal in caliber. There is no evidence for bowel obstruction. There are no pericolonic inflammatory changes. A normal, nondilated appendix is visualized without adjacent inflammatory changes. The kidneys enhance symmetrically. There is no suspicious renal mass. There is no hydronephrosis. There are no suspected calculi within the kidneys, ureters or urinary bladder. There is no free fluid or free intraperitoneal air. 1.9 cm cyst is noted in the superior pole the left kidney. Urinary bladder is distended measuring 8.7 x 8.8 x 9.7 cm. No suspicious pelvic mass is identified. No suspicious osseous abnormality. IMPRESSION: 1. No evidence for bowel obstruction or inflammation. Appendix is normal in appearance. Terminal ileum appears intact. 2. 4 mm solid noncalcified pulmonary nodule in the right lower lobe. Findings are stable since 02/10/2018 and presumed benign. Electronically signed by: Navjot Biggs MD (09/29/2019 8:34 PM) [facility] DICTATED and SIGNED BY: NAVJOT BIGGS MD DATE: 09/29/192033 Course & Med Decision Making: Course & Med Decision Making Pertinent Labs and Imaging studies reviewed. (See chart for details) Evaluation of patient in ER showed 43-year-old female patient with complaining of nausea and vomiting for the last 3 days and right lower quadrant pain. Patient had lower abdominal guarding. Patient had unremarkable labs except for mild UTI. CT abdomen pelvis was unremarkable except for small lung nodule of 4 mm. Patient felt better with treatment in ER. Patient was advised to continue liquid diet and follow-up with her GI specialist for ulcerative colitis. I've spoken with the patient and/or caregivers. I've explained the patient's condition, diagnosis and treatment plan based on information available to me at this time. I've answered the patient's and/or caregivers questions and addressed any concerns. The patient and/or caregivers have a good understanding the patient's diagnosis, condition and treatment plan as can be expected at this point. Vital signs have been stabilized. The patient's condition is stable for discharge from the emergency department. The patient will pursue further outpatient evaluation with her primary care provider or other designated consulting physician as outlined in the discharge instructions. Patient and/or caregivers are agreeable to this plan of care and f ollow-up instructions have been explained in detail. The patient and/or caregivers have received these instructions in written format and expressed understanding of these discharge instructions. The patient and her caregivers are aware that if any significant change in condition or worsening of symptoms should prompt him to immediately return to this of the closest emergency depart ment. If an emergent department is not readily available I would encourage him to call 911. Richie Disclaimer: Richie Disclaimer: This electronic medical record was generated, in whole or in part, using a voice recognition dictation system. Departure Departure Impression: Primary Impression: Acute gastritis Qualified Codes: K29.00 - Acute gastritis without bleeding Additional Impressions: Urinary tract infection Qualified Codes: N39.0 - Urinary tract infection, site not specified Right lower quadrant pain Disposition: HOME, SELF-CARE (At 2105) Condition: IMPROVED Referrals: MISTY RAMIREZ MD (PCP) Patient Instructions: Abdominal Pain (Nonspecific), Gastritis, Adult, Nausea and Vomiting, Urinary Tract Infection Additional Instructions: Drink plenty of liquids Follow-up with your primary care physician in 3-5 days Return to ER if not getting better Thank you for visiting [facility]. We appreciate you trusting us with your care. If any additional problems come up don't hesitate to return to visit us. Please follow up with your primary care provider so they can plan additional care if needed and know about the problem that you had. If symptoms worsen come back to the Emergency Department. Any concerning symptoms that start such as chest pain, shortness of air, weakness or numbness on one side of the body, running high fevers or any other concerning symptoms return to the ER. Scripts Hydrocodone/Apap 5-325 (NORCO 5-325 TABLET) 1 Each Tablet 1 TAB PO PRN Q6HRS PRN for PAIN, #10 TAB 0 Refills Prov: JOSÉ BRISENO MD 09/29/19 Ciprofloxacin Hcl (CIPRO) 250 Mg Tablet 1 TAB PO BID for infection, #14 TAB Prov: JOSÉ BRISENO MD 09/29/19 Ondansetron Hcl (ZOFRAN) 4 Mg Tablet 1 TAB PO PRN Q6-8HRS for nausea, #12 TAB Prov: JOSÉ BRISENO MD 09/29/19 JOSÉ BRISENO MD Sep 29, 2019 19:03
[2019-09-29 19:06] LABS: BASO % 1 % (0-3); EOS # 0.1 x10^3/uL (0.0-0.7); EOS % 1 % (0-3); HEMATOCRIT 41.7 % (36.0-47.0); HEMOGLOBIN 14.2 g/dL (12.0-15.5); LYMPH # 1.9 x10^3/uL (1.0-4.8); LYMPH % 33 % (24-48); MEAN CORPUSCULAR HEMOGLOBIN 33 pg (25-35); MEAN CORPUSCULAR HGB CONC 34 g/dL (31-37); MEAN CORPUSCULAR VOLUME 96 fL (79-100); MONO # 0.5 x10^3/uL (0.0-1.1); MONO % 9 % (0-9); NEUT # 3.2 x10^3/uL (1.8-7.7); NEUT % 56 % (31-73); PLATELET COUNT 259 x10^3/uL (140-400); RED BLOOD COUNT 4.33 x10^6/uL (3.50-5.40); WHITE BLOOD COUNT 5.7 x10^3/uL (4.0-11.0)
[2019-09-29 19:07] LABS: BACTERIA,URINE MANY /HPF (0-FEW); SQUAMOUS EPITHELIAL CELL,UR MOD /LPF
[2019-09-29 19:14] LABS: CALCIUM 9.5 mg/dL (8.5-10.1); GFR 60.8
[2019-09-29 19:20] LABS: ALBUMIN 4.2 g/dL (3.4-5.0); ALBUMIN/GLOBULIN RATIO 1.1 (1.0-1.7); TOTAL BILIRUBIN 0.3 mg/dL (0.2-1.0); TOTAL PROTEIN 7.9 g/dL (6.4-8.2)
[2019-09-29] MEDS ORDERED: ONDANSETRON PF 4 MG/2 ML VIAL. IVP ONE (20:00)
[2019-09-29] MEDS ORDERED: IOHEXOL 300 MG/ML 100ML VIAL. IV ONE (20:15)
[2019-09-29] MEDS ORDERED: IOHEXOL 240 MG/ML 50ML VIAL. PO ONE (20:15)
--- NOTE | 2019-09-29 20:37 | RAD ---
PQRS Compliance Statement: One or more of the following individualized dose reduction techniques were utilized for this examination: 1. Automated exposure control 2. Adjustment of the mA and/or kV according to patient size 3. Use of iterative reconstruction technique CT abdomen/pelvis with contrast 09/29/2019 6:44 PM INDICATION: Right lower quadrant pain with history of ulcerative colitis COMPARISON: CT abdomen/pelvis February 10, 2018 TECHNIQUE: Multiple axial CT images of the abdomen and pelvis were obtained after the intravenous administration of 75 mL Omnipaque 300. Coronal and sagittal reformats are provided. FINDINGS: There is subsegmental atelectasis in the inferior lingula. 4 mm solid noncalcified pulmonary nodule noted in the right lower lobe (series 2, image 6). Heart size is within normal limits. Liver, spleen, bilateral adrenal glands, pancreas and gallbladder are normal in appearance. Abdominal aorta is normal in course and caliber. There are no pathologically enlarged lymph nodes in abdomen and pelvis. Oral contrast was administered. Opacified bowel loops demonstrate normal mucosal fold pattern. Small and large bowel are normal in caliber. There is no evidence for bowel obstruction. There are no pericolonic inflammatory changes. A normal, nondilated appendix is visualized without adjacent inflammatory changes. The kidneys enhance symmetrically. There is no suspicious renal mass. There is no hydronephrosis. There are no suspected calculi within the kidneys, ureters or urinary bladder. There is no free fluid or free intraperitoneal air. 1.9 cm cyst is noted in the superior pole the left kidney. Urinary bladder is distended measuring 8.7 x 8.8 x 9.7 cm. No suspicious pelvic mass is identified. No suspicious osseous abnormality. IMPRESSION: 1. No evidence for bowel obstruction or inflammation. Appendix is normal in appearance. Terminal ileum appears intact. 2. 4 mm solid noncalcified pulmonary nodule in the right lower lobe. Findings are stable since 02/10/2018 and presumed benign. Electronically signed by: Marce Cruz MD (09/29/2019 8:34 PM) [facility]
[2019-09-29] MEDS ORDERED: ONDA4TAB7 PO (21:07)
[2019-09-29] MEDS ORDERED: CIPR250T30 PO (21:07)
[2019-09-29 21:33] VITALS: BP 118/74
[2019-09-29] MEDS ORDERED: HYDR-3164 PO (21:40)
== END 2019-09-29 21:30 | disposition home or self-care (01) ==
LOC: ER 17:59
DX: N39.0 Urinary tract infection, site not specified (principal); K29.00 Acute gastritis without bleeding; R10.31 Right lower quadrant pain; R11.2 Nausea with vomiting, unspecified; G43.909 Migraine, unspecified, not intractable, without status migrainosus; M79.7 Fibromyalgia; F12.90 Cannabis use, unspecified, uncomplicated; Z98.51 Tubal ligation status; Z98.890 Other specified postprocedural states; Z88.1 Allergy status to other antibiotic agents; Z88.2 Allergy status to sulfonamides; Z91.040 Latex allergy status
CPT/HCPCS: 36415; 74177; 80053; 81001; 83690; 85025; 87086; 96361; 96374; 96375; 99285; J1885; J2405; J7030; Q9966; Q9967

== ENCOUNTER 2019-12-27 23:40 | Emergency (ER) | payer BC ==
[~2019-12-27] VITALS: Ht 152.4 cm; Wt 52.3 kg
[~2019-12-27 23:40] MED LIST changes: +CIPR250T30 PO; +ONDA4TAB7 PO
[2019-12-28 00:09] LABS: BASO # 0.1 x10^3/uL (0.0-0.2); BASO % 1 % (0-3); EOS # 0.1 x10^3/uL (0.0-0.7); EOS % 2 % (0-3); HEMATOCRIT 36.7 % (36.0-47.0); HEMOGLOBIN 12.6 g/dL (12.0-15.5); LYMPH # 1.4 x10^3/uL (1.0-4.8); LYMPH % 19 % (24-48); MEAN CORPUSCULAR HEMOGLOBIN 33 pg (25-35); MEAN CORPUSCULAR HGB CONC 34 g/dL (31-37); MEAN CORPUSCULAR VOLUME 95 fL (79-100); MONO # 0.5 x10^3/uL (0.0-1.1); MONO % 7 % (0-9); NEUT # 5.4 x10^3/uL (1.8-7.7); NEUT % 72 % (31-73); PLATELET COUNT 263 x10^3/uL (140-400); RED BLOOD COUNT 3.88 x10^6/uL (3.50-5.40); RED CELL DISTRIBUTION WIDTH 12.9 % (11.5-14.5); WHITE BLOOD COUNT 7.6 x10^3/uL (4.0-11.0)
[2019-12-28 00:13] LABS: CALCIUM 8.6 mg/dL (8.5-10.1); CREATININE 1.2 mg/dL (0.6-1.0); POTASSIUM 3.8 mmol/L (3.5-5.1)
[2019-12-28] MEDS ORDERED: IV NORMAL SALINE 1000ML BAG 1,000 ML IV ONE ×2 (00:15→01:30)
[2019-12-28 00:19] LABS: ALBUMIN 3.6 g/dL (3.4-5.0); TOTAL BILIRUBIN 0.3 mg/dL (0.2-1.0); TOTAL PROTEIN 7.2 g/dL (6.4-8.2)
[2019-12-28] MEDS ORDERED: ONDANSETRON PF 4 MG/2 ML VIAL. IVP ONE (00:30)
[2019-12-28 01:14] LABS: BILIRUBIN,URINE NEGATIVE (NEG); CLARITY,URINE CLEAR; COLOR,URINE YELLOW; NITRITE,URINE NEGATIVE (NEG); PH,URINE 7.5 (<5.0-8.0); PROTEIN,URINE NEGATIVE (NEG-TRACE); UROBILINOGEN,URINE 0.2 mg/dL (0.2 mg/dL)
[2019-12-28 01:22] LABS: BACTERIA,URINE MODERATE /HPF (0-FEW); SQUAMOUS EPITHELIAL CELL,UR MOD /LPF; WBC,URINE 20-40 /HPF (0-4)
[2019-12-28] MEDS ORDERED: cefTRIAXone IV Push 1 GM VIAL. IVP ONE (01:30)
[2019-12-28] MEDS ORDERED: PROCHLORPERAZINE 10 MG/2 ML VIAL. IV ONE (01:30)
--- NOTE | 2019-12-28 01:51 | RAD ---
CT scan of the head without contrast 12/28/2019 Clinical History: Dizziness. Technique: Unenhanced, contiguous, 5 mm axial sections were obtained through the head. One or more of the following individualized dose reduction techniques were utilized for this study: 1. Automated exposure control. 2. Adjustment of the mA and/or kV according to patient size. 3. Use of iterative reconstruction technique. Findings: The ventricles and sulci are within normal limits in size and configuration. No area of abnormal attenuation is seen involving the brain parenchyma. No extra-axial fluid collection is noted. No skull fracture is seen. Impression: No acute intracranial abnormality is seen. Electronically signed by: Dwaine Humphrey MD (12/28/2019 1:48 AM) [id number]
[2019-12-28] MEDS ORDERED: ASPIRIN CHEWABLE 81 MG TABLET. PO ONE (02:15)
--- NOTE | 2019-12-28 02:20 | RAD ---
AP portable chest radiograph 12/28/2019 Clinical History: Shortness of breath. An AP erect portable digital radiograph of the chest was obtained. The cardiac silhouette is normal in size. The thoracic aorta is minimally tortuous. No acute pulmonary infiltrate is seen. No pleural effusion or pneumothorax is noted. The osseous structures are grossly intact. IMPRESSION: No acute abnormality is seen. Electronically signed by: Dwaine Humphrey MD (12/28/2019 2:17 AM) [id number]
--- NOTE | 2019-12-28 02:22 | PHYS DOC ---
Past Medical History Past Medical History: Anxiety, Constipation, Depression, Endometriosis, Migraines, UTI Past Surgical History: , Hysterectomy, Other Additional Past Surgical Histo: FEET SX. Smoking Status: Never Smoker Alcohol Use: Rarely Drug Use: Marijuana General Adult EDM: Chief Complaint: SHORTNESS OF BREATH HPI: HPI: Patient is a 44 year [id number] female presents stating her chief complaint is abdominal pain nausea and vomiting. Patient states symptoms ongoing since this evening. Patient states [place] [facility] [place] the [facility] 2 days. She last drank yesterday. Upon arriving home from the [facility] this evening patient became sick and vomited. Triage complaint include shortness of breath. Patient states she has some shortness of breath but is not any different than normal. Review of Systems: Review of Systems: Constitutional: Denies fever or chills. [] Eyes: Denies change in visual acuity. [] HENT: Denies nasal congestion or sore throat. [] Respiratory: Denies cough or shortness of breath. [] Cardiovascular: Denies chest pain or edema. [] GI: Denies abdominal pain, nausea, vomiting, bloody stools or diarrhea. [] : Denies dysuria. [] Musculoskeletal: Denies back pain or joint pain. [] Integument: Denies rash. [] Neurologic: Denies headache, focal weakness or sensory changes. [] Endocrine: Denies polyuria or polydipsia. [] Lymphatic: Denies swollen glands. [] Psychiatric: Denies depression or anxiety. [] Heart Score: Risk Factors: Risk Factors: DM, Current or recent (<one month) smoker, HTN, HLP, family history of CAD, obesity. Risk Scores: Score 0 - 3: 2.5% MACE over next 6 weeks - Discharge Home Score 4 - 6: 20.3% MACE over next 6 weeks - Admit for Clinical Observation Score 7 - 10: 72.7% MACE over next 6 weeks - Early Invasive Strategies Current Medications: Current Medications Medications (Trade) Dose Ordered Sig/Baldo Start Time Stop Time Status Last Admin Dose Admin Aspirin (Aspirin Chewable) 324 mg 1X ONCE 12/28/19 02:15 12/28/19 02:16 DC Ceftriaxone Sodium (Rocephin) 1 gm 1X ONCE 12/28/19 01:30 12/28/19 01:33 DC 12/28/19 01:47 1 GM Ondansetron HCl (Zofran) 4 mg 1X ONCE 12/28/19 00:30 12/28/19 00:31 DC 12/28/19 00:30 4 MG Prochlorperazine Edisylate (Compazine) 10 mg 1X ONCE 12/28/19 01:30 12/28/19 01:33 DC 12/28/19 01:44 10 MG Sodium Chloride 1,000 ml @ 1,000 mls/hr 1X ONCE 12/28/19 01:30 12/28/19 02:29 Allergies: Allergies: Allergies Coded Allergies Type Severity Reaction Last Updated Verified Sulfa (Sulfonamide Antibiotics) Allergy Intermediate 01/21/19 Yes amoxicillin Allergy Intermediate 01/21/19 Yes latex Allergy Intermediate 01/21/19 Yes Uncoded Allergies Type Severity Reaction Last Updated Verified STAINLESS STEEL Allergy Intermediate 01/21/19 Physical Exam: PE: Constitutional: Well developed, well nourished, no acute distress, non-toxic appearance. [] HENT: Normocephalic, atraumatic, bilateral external ears normal, oropharynx moist, no oral exudates, nose normal. [] Eyes: PERRLA, EOMI, conjunctiva normal, no discharge. [] Neck: Normal range of motion, no tenderness, supple, no stridor. [] Cardiovascular:Heart rate regular rhythm, no murmur [] Lungs & Thorax: Bilateral breath sounds clear to auscultation [] Abdomen: Bowel sounds normal, soft, no tenderness, no masses, no pulsatile masses. [] Skin: Warm, dry, no erythema, no rash. [] Back: No tenderness, no CVA tenderness. [] Extremities: No tenderness, no cyanosis, no clubbing, ROM intact, no edema. [] Neurologic: Alert and oriented X 3, normal motor function, normal sensory funct ion, no focal deficits noted. [] Psychologic: Affect normal, judgement normal, mood normal. [] Current Patient Data: Labs: Laboratory Tests Test 12/27/19 23:55 12/28/19 01:06 White Blood Count 7.6 x10^3/uL (4.0-11.0) Red Blood Count 3.88 x10^6/uL (3.50-5.40) Hemoglobin 12.6 g/dL (12.0-15.5) Hematocrit 36.7 % (36.0-47.0) Mean Corpuscular Volume 95 fL (79-100) Mean Corpuscular Hemoglobin 33 pg (25-35) Mean Corpuscular Hemoglobin Concent 34 g/dL (31-37) Red Cell Distribution Width 12.9 % (11.5-14.5) Platelet Count 263 x10^3/uL (140-400) Neutrophils (%) (Auto) 72 % (31-73) Lymphocytes (%) (Auto) 19 % (24-48) L Monocytes (%) (Auto) 7 % (0-9) Eosinophils (%) (Auto) 2 % (0-3) Basophils (%) (Auto) 1 % (0-3) Neutrophils # (Auto) 5.4 x10^3/uL (1.8-7.7) Lymphocytes # (Auto) 1.4 x10^3/uL (1.0-4.8) Monocytes # (Auto) 0.5 x10^3/uL (0.0-1.1) Eosinophils # (Auto) 0.1 x10^3/uL (0.0-0.7) Basophils # (Auto) 0.1 x10^3/uL (0.0-0.2) Sodium Level 140 mmol/L (136-145) Potassium Level 3.8 mmol/L (3.5-5.1) Chloride Level 103 mmol/L (98-107) Carbon Dioxide Level 25 mmol/L (21-32) Anion Gap 12 (6-14) Blood Urea Nitrogen 8 mg/dL (7-20) Creatinine 1.2 mg/dL (0.6-1.0) H Estimated GFR (Cockcroft-Gault) 49.0 BUN/Creatinine Ratio 7 (6-20) Glucose Level 103 mg/dL (70-99) H Calcium Level 8.6 mg/dL (8.5-10.1) Total Bilirubin 0.3 mg/dL (0.2-1.0) Aspartate Amino Transferase (AST) 24 U/L (15-37) Alanine Aminotransferase (ALT) 29 U/L (14-59) Alkaline Phosphatase 82 U/L (46-116) Creatine Kinase 115 U/L (26-192) Troponin I Quantitative < 0.017 ng/mL (0.000-0.055) Total Protein 7.2 g/dL (6.4-8.2) Albumin 3.6 g/dL (3.4-5.0) Albumin/Globulin Ratio 1.0 (1.0-1.7) Urine Collection Type Unknown Urine Color Yellow Urine Clarity Clear Urine pH 7.5 (<5.0-8.0) Urine Specific [place] 1.015 (1.000-1.030) Urine Protein Negative mg/dL (NEG-TRACE) Urine Glucose (UA) Negative mg/dL (NEG) Urine Ketones (Stick) Trace mg/dL (NEG) Urine Blood Negative (NEG) Urine Nitrite Negative (NEG) Urine Bilirubin Negative (NEG) Urine Urobilinogen Dipstick 0.2 mg/dL (0.2 mg/dL) Urine Leukocyte Esterase Moderate (NEG) Urine RBC 1-2 /HPF (0-2) Urine WBC 20-40 /HPF (0-4) Urine Squamous Epithelial Cells Mod /LPF Urine Bacteria Moderate /HPF (0-FEW) Urine Mucus Mod /LPF Laboratory Tests 12/27/19 23:55 Laboratory Tests 12/27/19 23:55 Vital Signs: Vital Signs Date Time Temp Pulse Resp B/P (MAP) Pulse Ox O2 Delivery O2 Flow Rate FiO2 12/28/19 00:00 97.6 96 20 116/69 (85) 100 Room Air 97.6 EKG: EKG: EKG time 2355. Heart rate [address] elevation no ST depression no acute MO [] Radiology/Procedures: Radiology/Procedures: [] Impression: Clinical History: Chest pain. An AP erect portable digital radiograph of the chest was obtained. No previous studies are available for comparison. The cardiac and mediastinal silhouettes are within normal limits in size and configuration. No acute pulmonary infiltrate is seen. No pleural effusion or pneumothorax is noted. The osseous structures are grossly intact. IMPRESSION: No acute abnormality is seen. Course & Med Decision Making: Course & Med Decision Making Pertinent Labs and Imaging studies reviewed. (See chart for details) [] Initial treatment for nausea included Zofran. Approximately 0130 nursing informed me patients vomiting has returned. She also states the patient went to the bathroom and seemed to be unsteady on her feet. Treatment of nausea Compazine 10 mg. Patient also received IV fluids and urine is consistent with a urinary tract infection. Treatment included Rocephin 1 g. X-ray within normal limits. CT head within normal limits. Creatinine slightly elevated at 1.2 there are no significant abnormalities of patient's other labs including CBC and CMP. Patient's EKG within normal limits. Reevaluation of patient at 030 0 hours. Patient states she feels much better. Patient ambulated to the ER with a steady gait. Patient will be discharged home on Zofran and Macrobid. Dragon Disclaimer: Dragon Disclaimer: This electronic medical record was generated, in whole or in part, using a voice recognition dictation system. Departure Departure Impression: Primary Impression: UTI (urinary tract infection) Additional Impression: Nausea and vomiting Disposition: HOME, SELF-CARE Condition: STABLE Referrals: MISTY RAMIREZ MD (PCP) Patient Instructions: Dehydration, Adult, Nausea and Vomiting, Urinary Tract Infection Additional Instructions: You have been tested for or diagnosed with COVID-19. It is an infection caused by a new type of coronavirus. COVID-19 will cause cold-like or mild flu symptoms in most. It can cause more severe symptoms like problems breathing in some. There is no treatment for COVID-19. The body will clear the infection over time. Self-care will help to ease discomfort. Steps to Take: Self-Care Rest as needed. Healthy habits may help you feel better. Steps include: Choose healthy foods including fruits and vegetables. Drink water throughout the day. Get plenty of sleep each night. If you smoke, try to quit. It may ease breathing. Avoid alcohol. Keep Others Healthy The virus can spread to others. Droplets are released every time you sneeze or cough. The droplets can get into the mouth, nose, or eyes of people near you and lead to infection. To lower the chances of spreading COVID-19 to others: Stay at home until your doctor has said it is safe to leave. If you tested positive this will mean staying isolated until both of the following are true: At least 7 days have passed since the start of illness. You are free of fever for at least 72 hours without the use of medicine. During this time: - Avoid public areas, events, or transportation. Do not return to work or school until your doctor has said it is safe to do so. - Call ahead if you need to go to a medical center. Let them know you may have COVID-19. It will help them guide you where to go. They may also ask you to wear a facemask when you come to the office. - If you call for emergency medical services, let them know you may have COVID- 19. While at home: - Try to avoid close contact with others. Stay about 6 feet away. - If possible, spend most of your time in a separate room from others. - Use a face mask if you will be in close contact with others such as sharing a room or vehicle. - Have someone wipe down common surfaces in the home. Use household canal boat operator every day on areas like doorknobs, counters, or sinks. - Cough or sneeze into a tissue. Throw the tissue away right after use. If a tissue is not available, cough or sneeze into your elbow. - Wash your hands often. Wash them after sneezing or coughing. Use soap and water and wash for at least 20 seconds. Alcohol based hand aircraft cabin cleaner can be used if soap and water is not available. - Do not prepare food for others. Avoid sharing personal items like forks, spoons, or toothbrushes. - Avoid close contact with pets while you are sick. There is no evidence of the virus passing to pets. This is a safety step until more is known about this virus. Isolation can be frustrating. Social interaction can help. Keep in touch with friends and family through phone and tech options. You can still interact with others in your home, just keep a safe distance of about 6 feet. Follow-up: Your doctors office will check in with you to see if there are any changes in your health. You may be asked to keep track of symptoms to share with them. They will also let you know when you are clear to be in public again. Problems to Look Out For: Contact your doctor if your recovery is not going as you expect. Get emergency care if you have problems such as: - Trouble breathing - Nonstop chest pain or pressure - Changes in awareness, confusion, or problems waking - Lips or face have bluish color - Worsening of symptoms If you think you have an emergency, call for emergency medical services right away. As taken from [facility] Nitrofurantoin Monohyd/M-Cryst (MACROBID 100 MG CAPSULE) 100 Mg Capsule 1 CAP PO BID for 7 Days, #14 CAP 0 Refills Prov: LINNEA LOUIS I DO 12/28/19 Ondansetron Hcl (ZOFRAN) 4 Mg Tablet 1 TAB PO Q6HRS, #20 TAB Prov: LINNEA LOUIS I DO 12/28/19 Justicifation of Admission Dx: Justifications for Admission: Justification of Admission Dx: N/A LINNEA LOUIS I DO Dec 28, 2019 02:22
[2019-12-28] MEDS ORDERED: NITR100C62 PO (02:57)
[2019-12-28] MEDS ORDERED: ONDA4TAB7 PO (02:57)
[2019-12-28 03:19] VITALS: BP 115/57
--- NOTE | 2019-12-29 07:55 | EKG ---
[facility] [address] [place] [address] Test Date: 2019-12-27 Test Time: 23:55:37 Pat Name: BRITT LEAL Department: Room: Gender: F Safety Analyst: : 1975 Requested By: LINNEA LOUIS Order Number: [id number] Reading MD: Measurements Intervals [place] Rate: 101 P: 90 UT: 122 QRS: 80 QRSD: 76 T: 48 QT: 342 QTc: 444 Interpretive Statements SINUS TACHYCARDIA OTHERWISE NORMAL ECG RI6.02 No previous ECG available for comparison
== END 2019-12-28 03:30 | disposition home or self-care (01) ==
LOC: ER 23:40
DX: N39.0 Urinary tract infection, site not specified (principal); R11.2 Nausea with vomiting, unspecified; Z20.818 Contact with and (suspected) exposure to other bacterial communicable diseases; G43.909 Migraine, unspecified, not intractable, without status migrainosus; Z88.1 Allergy status to other antibiotic agents; Z88.2 Allergy status to sulfonamides; Z91.040 Latex allergy status; Z88.8 Allergy status to other drugs, medicaments and biological substances
CPT/HCPCS: 36415; 70450; 71045; 80053; 81001; 82550; 83880; 84484; 85025; 87086; 93005; 96361; 96374; 96375; 99285; J0696; J0780; J2405; J7030; U0003

== ENCOUNTER → 2021-10-24 | Outpatient (CLI) | payer OTHER ==
[~2021-10-24] MED LIST changes: +BUPR100T16 PO; -BUPR100T8 PO; +GADOTERATE 5 MMOL/10ML VIAL. IVP ONE; +NITR100C62 PO
--- NOTE | 2021-10-24 12:23 | RAD ---
EXAM: Brain MRI with and without contrast. HISTORY: Confusion. Blurred vision. Migraine. TECHNIQUE: Multiplanar, multisequence magnetic resonance imaging of the brain was performed prior to and following the administration of intravenous contrast. COMPARISON: CT dated 12/28/2019. MRI dated 12/16/2013. FINDINGS: There is no restricted diffusion to suggest acute or subacute infarction. There is no susce ptibility effect to suggest hemorrhage. There is no mass effect or midline shift. There are multiple small focal T2/FLAIR hyperintense lesions within the left greater than right cerebral white matter, a nonspecific finding. The orbits are unremarkable. There is a tiny left maxillary sinus mucous retention cyst. There are le ft greater than right binu bullosa. There is fluid within the left greater than right mastoid air c ells. There are normal flow voids within the cerebral vessels. There is no suspicious calvarial lesio n. There is no suspicious enhancing lesion. IMPRESSION: 1. No acute intracranial finding. 2. Multiple nonspecific scattered foci of signal change within the cerebral white matter, increased c ompared to the prior MRI dated 12/16/2013. This can be seen with the patient history of chronic migrain e headaches. The lesion distribution does not favor demyelinating disease; however, this cannot be ex cluded in a patient of this age. The differential also includes changes due to chronic small vessel d isease, advanced for patient age. 3. Left greater than right mastoid fluid, stable in appearance. Electronically signed by: Sabiha Weeks MD (10/24/2021 9:39 AM) [id number]
== END ==
LOC: MRI 08:31
PROVIDERS: ATTEND Physician Assistant
DX: R90.82 White matter disease, unspecified (principal); J34.1 Cyst and mucocele of nose and nasal sinus; R41.0 Disorientation, unspecified; H53.8 Other visual disturbances; G43.109 Migraine with aura, not intractable, without status migrainosus
CPT/HCPCS: 70553; A9575